=== PATIENT | male | born 1970 | race Caucasian/White ===

== ENCOUNTER 2017-05-14 19:11 | Emergency (ER) | payer OTHER ==
[2017-05-14 19:24] VITALS: BMI 25.0
[2017-05-14 19:27] VITALS: BP 141/78; PULSE 55; RESP 24; TEMP 97.5; O2SAT 98
[2017-05-14] MEDS ORDERED: Ampicillin/Sulbactam 3 GM in Sodium Chloride 0.9% 100 ML IVPB STA (19:32)
[2017-05-14] MEDS ORDERED: Sodium Chloride 0.9% 500 ML IV STA (19:33)
[2017-05-14 20:40] LABS: BASO % 1.1 % (0.0-2.0); EOS # 0.2 K/uL (0.0-0.7); HEMATOCRIT 39.7 % (35.0-51.0); LYMPH # 1.8 K/uL (1.0-4.3); LYMPH % 41.5 % (20.0-40.0); MEAN CELL VOLUME 86.2 fl (80.0-94.0); MEAN CORPUSCULAR HEMOGLOBIN 27.8 pg (27.0-31.0); MEAN CORPUSCULAR HGB CONC 32.3 g/dL (33.0-37.0); MEAN PLATELET VOLUME 10.2 fl (7.2-11.7); MONO # 0.4 K/uL (0.0-0.8); MONO % 9.7 % (0.0-10.0); NEUT # 1.9 K/uL (1.8-7.0); NEUT % 43.7 % (50.0-75.0); RED CELL DISTRIBUTION WIDTH 14.4 % (11.5-14.5); WHITE BLOOD COUNT 4.3 K/uL (4.8-10.8)
[2017-05-14] MEDS ORDERED: Lidocaine 2% Inj (20ml) ONE (20:42)
[2017-05-14] MEDS ORDERED: Povidone Iodine Topical 10% Sol ONE (20:48)
[2017-05-14 20:49] LABS: ALB/GLOB RATIO 1.3 (1.0-2.1); ALKALINE PHOSPHATASE 80 U/L (38-126); ALT/SGPT 46 U/L (21-72); AST/SGOT 37 U/L (17-59); BILIRUBIN,TOTAL 0.7 mg/dl (0.2-1.3); BLOOD UREA NITROGEN 15 mg/dl (9-20); CALCIUM 9.3 mg/dL (8.4-10.2); CARBON DIOXIDE 20 mmol/L (22-30); CHLORIDE 104 mmol/L (98-107); GFR AFRICAN-AMERICAN > 60; GLUCOSE,RANDOM 89 mg/dL (75-110); POTASSIUM 3.7 MMOL/L (3.6-5.0); SODIUM 138 mmol/l (132-148); TOTAL PROTEIN 7.8 G/DL (6.3-8.2)
--- NOTE | 2017-05-14 21:04 | ED PDOC ---
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 Patient states he did not see any amputated piece in the area and admits that he did not actively search for one. 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 Patient reports sharp pain at wound site and denies any other injured. Patient denies any numbness, tingling, weakness, fever or chills. Patient offers no additional medical complaints. Past Medical History Reviewed: Historical Data, Nursing Documentation, Vital Signs Vital Signs: Last Vital Signs Temp 97.5 F L 05/14/17 19:24 Pulse 55 L 05/14/17 19:24 Resp 24 05/14/17 19:24 BP 141/78 05/14/17 19:24 Pulse Ox 98 05/14/17 19:24 - Medical History PMH: No Chronic Diseases - Surgical History Surgical History: No Surg Hx - Family History Family History: States: Unknown Family Hx - Social History Current smoker - smoking cessation education provided: No Alcohol: None Drugs: Denies - Home Medications Home Medications: Ambulatory Orders Medication Instructions Recorded Amoxicillin/Clavulanate [Augmentin 1 tab PO BID #14 tab 05/14/17 875 MG-125 MG] Ibuprofen [Motrin Tab] 600 mg PO Q8 PRN #60 tab 05/14/17 traMADol [Ultram] 50 mg PO TID PRN #15 tab 05/14/17 traMADol [Ultram] 50 mg PO Q6 PRN 05/16/17 - Allergies Allergies/Adverse Reactions: Allergies Allergy/AdvReac Type Severity Reaction Status Date / Time No Known Allergies Allergy Verified 05/14/17 19:23 Review of Systems ROS Statement: Except As Marked, All Systems Reviewed And Found Negative (as per HPI) Constitutional: Negative for: Fever, Chills, Weakness Musculoskeletal: Positive for: Hand Pain (right hand) Skin: Positive for: Lesions (right 5th digit) Neurological: Negative for: Weakness, Numbness Physical Exam - Reviewed Nursing Documentation Reviewed: Yes Vital Signs Reviewed: Yes - Physical Exam Appears: Positive for: Non-toxic, Uncomfortable (moderate painful distress) Head Exam: Positive for: ATRAUMATIC, NORMAL INSPECTION, NORMOCEPHALIC Skin: Positive for: Normal Color, Warm, Diaphoresis Eye Exam: Positive for: Normal appearance Neck: Positive for: Normal, Supple Cardiovascular/Chest: Positive for: Regular Rate, Rhythm Respiratory: Positive for: Normal Breath Sounds. Negative for: Respiratory Distress Neurologic/Psych: Positive for: Alert, Oriented. Negative for: Motor/Sensory Deficits Comments: RIGHT 5th digit: Amputation of volar side of distal phalanx with exposed deep subcutaneous tissue and tip of fractured bone, slow oozing from open tissue, no pulsatile bleeding. Flex/extension at DIP/PIP/MCP joints 5/5. Light touch intact. - Laboratory Results Result Diagrams: 05/14/17 20:25 05/14/17 20:25 - ECG O2 Sat by Pulse Oximetry: 98 (RA) Pulse Ox Interpretation: Normal Medical Decision Making Medical Decision Making: Time: 1921 Impression: Right 5th digit fingertip amputation Plan: -- XR Right hand -- IV Fluids -- Unasyn -- Morphine 4mg IV Reassess Time: 2029 XR as read by provider indicates amputation of distal tip of distal phalanx of right 5th digit. Case discussed with Dr. Fiore, hand surgeon clinical documentation manager who suggests patient to be placed in Xeroform and bulky dressing. Patient instructed to follow up with Dr. Fiore tomorrow. Patient given contact information for Teresa, general office dispatcher to Dr. Fiore who will give patient further instructions when he calls tomorrow morning at 9 AM. Digital block performed on RIGHT 5th digit with 2% plain lidocaine for purposes of thorough examination, cleansing, and dressing wound. Cleaned with sterile saline and betadine soak. Xeroform and sterile bulky dressing applied by provider. Patient given a sling as well. Scribe Attestation: Documented by Mariama Freeman acting as a scribe for Bety Cintron MD. Provider Attestation: All medical record entries made by the Scribe were at my direction and personally dictated by me. I have reviewed the chart and agree that the record accurately reflects my personal performance of the history, physical exam, medical decision making, and the department course for this patient. I have also personally directed, reviewed, and agree with the discharge instructions and disposition. Disposition - Clinical Impression Clinical Impression: Finger amputation, traumatic Counseled Patient/Family Regarding: Studies Performed, Diagnosis, Need For Followup, Rx Given - Disposition Referrals: [facility] [Outside] Evy Pearson MD [Staff Provider] - 05/15/17 (CALL OFFICE TOMORROW AT 9AM TO SPEAK TO MILLIE. SHE WILL GIVE YOU FURTHER INSTRUCTIONS. YOU WILL BE SEEN BY DR PEARSON IN THE AFTERNOON.) Disposition: Routine/Home Disposition Time: 21:30 Condition: STABLE Additional Instructions: DO NOT REMOVE DRESSING TAKE MEDICATIONS PRESCRIBED Prescriptions: Amoxicillin/Clavulanate [Augmentin 875 MG-125 MG] 1 tab PO BID #14 tab Ibuprofen [Motrin Tab] 600 mg PO Q8 PRN #60 tab PRN Reason: Pain, Moderate (4-7) traMADol [Ultram] 50 mg PO TID PRN #15 tab PRN Reason: SEVERE PAIN ONLY Instructions: Finger Amputation (ED) Forms: [facility] ED School/Work Excuse
[2017-05-14 21:09] LABS: PARTIAL THROMBOPLASTIN TIME 31.1 Seconds (25.6-37.1)
--- NOTE | 2017-05-15 11:35 | RAD ---
PROCEDURE: Right small finger radiographs. HISTORY: finger amputation COMPARISON: None. TECHNIQUE: AP radiograph of the right hand, as well as spot oblique and lateral images of small finger were obtained. FINDINGS: RIGHT SMALL FINGER: Tissue loss at the level of the distal phalanx of the right small finger is identified with the tuft partially absent as well compatible with known amputation. No definite retained radiodense foreign bodies appreciated proximal and middle phalanges of the right small finger appear intact as well as their local soft tissues. Remainder of the right hand (as seen on the AP view) grossly unremarkable. JOINTS: Normal. SOFT TISSUES: Partial amputation right small finger as described above. OTHER FINDINGS: None. IMPRESSION: Partial amputation at the distal portion of the right small finger involves the tuft of the distal phalanx and local soft tissues there is well as more proximally. No retained radiodense foreign body or dislocation identified.
== END 2017-05-14 22:34 | disposition home or self-care (01) ==
LOC: H.ER 19:11
DX: S68.626A Partial traumatic transphalangeal amputation of right little finger, initial encounter (principal); W23.0XXA Caught, crushed, jammed, or pinched between moving objects, initial encounter; Y99.0 Civilian activity done for income or pay
CPT/HCPCS: 73140; 80053; 85025; 85610; 85730; 86850; 86900; 96361; 96374; 96375; 99283; J0295; J2270; J7040

== ENCOUNTER 2017-05-16 05:58 | Day surgery (SDC) | payer SELFPAY ==
[2017-05-16] MEDS ORDERED: Lactated Ringer's 1,000 ML IV ONE ×2 (06:40→08:45)
[2017-05-16] MEDS ORDERED: Lidocaine 1% Inj (20ml) ONE (07:15)
[2017-05-16] MEDS ORDERED: Bupivacaine 0.5% Inj(30mL) ONE (07:15)
[2017-05-16] MEDS ORDERED: Midazolam 2 MG/2 ML VIAL ONE (07:38)
[2017-05-16] MEDS ORDERED: Propofol 10 mg/ml Inj (20 ML) ONE ×2 (07:38→08:26)
[2017-05-16] MEDS ORDERED: Lidocaine Hydrochloride 5 ML INJ ONE (07:38)
[2017-05-16] MEDS ORDERED: EPINEPHrine 1 mg/ml (1:1000) Inj ONE (07:39)
[2017-05-16] MEDS ORDERED: Bacitracin Ointment 30 GM TUBE ONE (07:39)
[2017-05-16] MEDS ORDERED: Bupivacaine HCl 0.25% PF (30 ml) Inj ONE (07:39)
[2017-05-16] MEDS ORDERED: Bupivacaine 0.5% 50 ML IJ ONE (08:15)
[2017-05-16] MEDS ORDERED: Lidocaine 1% Inj (20ml) IJ ONE (08:15)
[2017-05-16] MEDS ORDERED: Bacitracin OINT 15GM TOP ONE (08:37)
--- NOTE | 2017-05-16 08:52 | PCM.SURG1 ---
Surgeon's Initial Post Op Note - Surgeon's Notes Surgeon: Latrice Production Control Expediter: Giovanny PGY3, Saeed PGY1 Type of Anesthesia: Block Regional, IV Sedation Pre-Operative Diagnosis: R small finger volar avulsion Operative Findings: same Post-Operative Diagnosis: same Operation Performed: hypothenar flap Specimen/Specimens Removed: none Estimated Blood Loss: EBL {In ML}: 15 Blood Products Given: N/A Drains Used: No Drains Post-Op Condition: Good Date of Surgery/Procedure: 05/16/17 Time of Surgery/Procedure: 08:51
[2017-05-16] MEDS ORDERED: Amoxicillin-Clav 875-125 mg Tab PO SCH (09:00)
[2017-05-16] MEDS ORDERED: Lactated Ringer's 1,000 ML IV SCH (09:11)
[2017-05-16 10:06] VITALS: RESP 18
[2017-05-16 10:55] VITALS: BP 105/0; PULSE 47; TEMP 97.8; O2SAT 98
--- NOTE | 2017-05-20 22:52 | OP ---
PROCEDURE DATE: 05/20/2017. SURGEON: Dr. Evy Pollard MD. DIRECT SERVICE PROFESSIONAL: Aba , DO. PREOPERATIVE DIAGNOSIS: Right small finger volar tip avulsion. POSTOPERATIVE DIAGNOSIS: Right small finger volar tip avulsion. ANESTHESIA: Sedation. PROCEDURE: 1. Wrist block. 2. Creation of hypothenar flap, debridement of finger tip and transposition of thenar flap. Lab sponge and needle count were correct at the end of the case. CONDITION: The patient was thereupon discharged to recovery. INDICATIONS FOR SURGERY: The patient is a 46-year-old male who sustained a avulsion of the soft tissue on his right small finger white at work. His phalanx is intact and the extensor tendon is intact, however he has no volar soft tissue. In the office we discussed completion amputation versus resurfacing of the volar skin and he has opted for the thenar flap knowing that he may have some PIP contractures postop. SURGERY FOLLOWS: The patient was attended by the holding area. Right arm was marked. He was then brought to the operating room and laid in supine on the operating room table. One sedation was provided till the right wrist was blocked using 1% Lidocaine, 0.5% Marcaine in a 50:50 mixture to block the median nerve, ulnar nerve, radial sensory and ulnar sensory nerves. The hand was then prepped and draped in the usual sterile fashion. Using a 15 scalpel, a distally based hypothenar flap was created over the hypothenar eminence in line with the small finger when flexed. The flap was 2 cm x 1 cm in width. The proximal end was left detached. The finger itself was debrided along its undersurface of any granulation tissue. The proximal aspect of the flap was then flipped a 180 degrees and sutured to the proximal end of the finger. Two 4-0 nylons were used to suture the finger down in 90 degrees flexion at the PIP joint and 180 at the DIP. The wound was then irrigated, any bleeding was controlled with the electrocautery. The palmar defect was defect was covered with Bacitracin and Duform as was the area around the flap itself on the finger. The entire hand was then dressed with 4 x 4 gauze and Coban. The patient tolerated the procedure well. He was transferred to the stretcher and brought to the recovery in stable condition. Evy Pollard MD [facility] # [id number]
== END 2017-05-16 11:25 | disposition home or self-care (01) ==
LOC: H.OPSURG 05:58
PROVIDERS: ATTEND Plastic Surgery Surgery of the Hand
DX: S61.206A Unspecified open wound of right little finger without damage to nail, initial encounter (principal); X58.XXXA Exposure to other specified factors, initial encounter
CPT/HCPCS: 14040; 64450; J0690; J2250; J2405; J2704; J3010; J7030; J7120

== ENCOUNTER 2017-05-31 06:19 | Day surgery (SDC) | payer SELFPAY ==
[2017-05-31] MEDS ORDERED: Midazolam 2 MG/2 ML VIAL ONE (07:22)
[2017-05-31] MEDS ORDERED: Propofol 10 mg/ml Inj (20 ML) ONE ×4 (07:22→08:16)
[2017-05-31] MEDS ORDERED: Lidocaine 1% Inj (20ml) ONE (07:37)
[2017-05-31] MEDS ORDERED: Bupivacaine 0.5% Inj(30mL) ONE (07:37)
[2017-05-31] MEDS ORDERED: Lactated Ringer's 1,000 ML IV ONE (07:40)
[2017-05-31] MEDS ORDERED: Lidocaine 1% Inj (20ml) IJ ONE (08:05)
[2017-05-31] MEDS ORDERED: Bupivacaine 0.5% 50 ML IJ ONE (08:05)
[2017-05-31] MEDS ORDERED: Bacitracin Ointment 30 GM TUBE ONE (08:16)
[2017-05-31] MEDS ORDERED: Bacitracin OINT 15GM TOP ONE (08:40)
[2017-05-31] MEDS ORDERED: HYDROmorphone 0.5 mg/0.5 ml ISec IVP PRN (08:46)
[2017-05-31] MEDS ORDERED: Lactated Ringer's 1,000 ML IV SCH (08:46)
[2017-05-31 09:06] VITALS: RESP 18; O2SAT 100
[2017-05-31] MEDS ORDERED: Oxycodone/Acetaminophen 5/325 mg Tab PO PRN (09:21)
--- NOTE | 2017-05-31 09:26 | PCM.SURG1 ---
Surgeon's Initial Post Op Note - Surgeon's Notes Surgeon: Dr. Del Pollard Glucose And Syrup Weigher: Sana Davey PA-C Type of Anesthesia: IV Sedation Anesthesia Administered By: Dr. Zenaida Neff Pre-Operative Diagnosis: Right Fifth Phalanx Distal Volar Avulsion Injury Operative Findings: see operative note Post-Operative Diagnosis: same Operation Performed: Right Fifth Phalanx Division and Inset of Hypothenar Flap Specimen/Specimens Removed: none Estimated Blood Loss: EBL {In ML}: 5 Drains Used: No Drains Post-Op Condition: Good Date of Surgery/Procedure: 05/31/17 Time of Surgery/Procedure: 07:45
[2017-05-31 11:15] VITALS: BP 118/73; PULSE 48; TEMP 97.5
--- NOTE | 2017-06-04 01:33 | OP ---
PROCEDURE DATE: 05/31/2017 SURGEON: Evy Pollard MD BUSINESS ANALYST PROJECT MANAGER: Sana Davey PA-C PREOPERATIVE DIAGNOSIS: Right small finger distal volar tip avulsion. POSTOPERATIVE DIAGNOSIS: Right small finger distal volar tip avulsion. ANESTHESIA: Sedation. PROCEDURE: Division and insert of hypothenar flap with insert of the flap into the small finger distal tip and primary closure of the palmar defect and right wrist block. COUNT: Lab sponge and needle count were correct at the end of the case. CONDITION: The patient was thereupon discharged to recovery. INDICATIONS FOR SURGERY: The patient is a 46-year-old male who suffered a avulsion injury of the right small finger distal phalanx volar soft tissue with intact tendon and nail and nail bed. He underwent a first-stage procedure 2 weeks ago and is here for the division and inserting of the hypothenar flap. DESCRIPTION OF PROCEDURE: The patient was identified in the holding area, brought to the operating room and laid in supine on the operating room table. Once sedation was provided, wrist block was performed by the operating surgeon with 10 mL of 1% Lidocaine, 0.5% Marcaine in a 50:50 mixture in order to block the median nerve, ulnar nerve, ulnar sensory and radial sensory nerves. The arm was then prepped and draped in the usual sterile fashion. Using a scalpel, the proximal aspect of the flap in the hand was divided, a portion of the distal flap needed to be trimmed in order to inset and flap against the distal phalanx and nail bed. 4-0 chromic was used to inset the thenar flap on to the finger, in the hand itself, Burow's triangles removed at either end of the resulting defect from the hypothenar flap. This resulted in an extra centimeter on either side of the 1.5 cm long flap. The ultimate defect was 3.5 cm x 1.0 cm in width which was mobilized and closed primarily using 4-0 chromic. The wounds were irrigated, granulation tissue was removed prior to closing the inset in the flap. The finger was manipulated at the PIP joint and DIP joints for stiffness and at the conclusion of the case, dressing was applied using Adaptic, Bacitracin, 4 x 4 gauze, Arthur and then reinforced with Coban. The patient tolerated the procedure well, was transferred to the stretcher and brought to the recovery in stable condition. Evy Pollard MD
== END 2017-05-31 11:40 | disposition home or self-care (01) ==
LOC: H.OPSURG 06:19
PROVIDERS: ATTEND Plastic Surgery Surgery of the Hand
DX: S61.206A Unspecified open wound of right little finger without damage to nail, initial encounter (principal); X58.XXXA Exposure to other specified factors, initial encounter
CPT/HCPCS: 12001; J0690; J1170; J2250; J2704; J3010; J7030; J7120

== ENCOUNTER 2018-07-14 12:43 | Emergency (ER) | payer SELFPAY ==
[2018-07-14 12:43] VITALS: BMI 25.0
[2018-07-14 13:03] VITALS: RESP 18; O2SAT 100
--- NOTE | 2018-07-14 14:04 | ED PDOC ---
Lower Extremity Pain/Injury Time Seen by Provider: 07/14/18 13:09 Chief Complaint (Nursing): Lower Extremity Problem/Injury Chief Complaint (Provider): Lower Extremity Problem/Injury History Per: Patient History/Exam Limitations: no limitations Onset/Duration Of Symptoms: Hrs Current Symptoms Are (Timing): Still Present Additional Complaint(s): 48 y/o male presents to the ED for evaluation of left lower extremity pain. Patient states that last night he accidentally dropped a cutting board on his left foot. Patient reports of icing and elevating his foot with no improvement. Patient denies taking any medications for pain. PMD: none - Ankle/Foot Description Of Injury: Struck With Object Past Medical History Reviewed: Historical Data, Nursing Documentation, Vital Signs Vital Signs: Last Vital Signs Temp 97.6 F 07/14/18 13:01 Pulse 65 07/14/18 13:01 Resp 18 07/14/18 13:01 BP 122/72 07/14/18 13:01 Pulse Ox 100 07/14/18 13:01 - Medical History PMH: No Chronic Diseases Denies: Chronic Kidney Disease - Surgical History Surgical History: No Surg Hx - Family History Family History: States: Unknown Family Hx - Home Medications Home Medications: Ambulatory Orders Medication Instructions Recorded Amoxicillin/Clavulanate [Augmentin 1 tab PO BID #14 tab 05/14/17 875 MG-125 MG] Ibuprofen [Motrin Tab] 600 mg PO Q8 PRN #60 tab 05/14/17 traMADol [Ultram] 50 mg PO Q4 05/31/17 - Allergies Allergies/Adverse Reactions: Allergies Allergy/AdvReac Type Severity Reaction Status Date / Time No Known Allergies Allergy Verified 07/14/18 13:01 Review of Systems ROS Statement: Except As Marked, All Systems Reviewed And Found Negative Musculoskeletal: Positive for: Foot Pain (left) Physical Exam - Reviewed Nursing Documentation Reviewed: Yes Vital Signs Reviewed: Yes - Physical Exam Appears: Positive for: No Acute Distress Skin: Positive for: Normal Color, Warm, Dry Eye Exam: Positive for: Normal appearance Neck: Positive for: Normal Cardiovascular/Chest: Negative for: Bradycardia, Tachycardia Respiratory: Negative for: Accessory Muscle Use, Respiratory Distress Extremity: Positive for: Tenderness (Erythema and tenderness to the dorsal mid- foot). Negative for: Deformity (gross bony deformity) - Laboratory Results Result Diagrams: 10/28/18 16:50 - ECG O2 Sat by Pulse Oximetry: 100 (RA) Pulse Ox Interpretation: Normal Medical Decision Making Medical Decision Making: Time: 1359 Plan: -- Motrin 600 mg PO -- Foot Left 3 Views XR Time: 1 FOOT XR RESULTS FINDINGS: BONES: No acute fracture. Hallux valgus deformity. Anterior talar osteophyte. JOINTS: 1st metatarsophalangeal arthritic changes. SOFT TISSUES: Normal. OTHER FINDINGS: None. IMPRESSION: No demonstrated fracture or dislocation. Hallux valgus deformity. Time: 1644 -- Podiatry consult completed. Podiatry requesting CBC and state if white count is normal, patient can be sent home. If white count is abnormal, patient can be sent home with antibiotics. Patient advised to follow up with transmission engineer, Dr. Santana in his office in 2-3 days. -- Schmidt compression applied. Scribe Attestation: Documented by Kishan Gil, acting as a scribe for Ada Henao PA-C. Provider Scribe Attestation: All medical record entries made by the Scribe were at my direction and personally dictated by me. I have reviewed the chart and agree that the record accurately reflects my personal performance of the history, physical exam, [facility] decision making, and the department course for this patient. I have also personally directed, reviewed, and agree with the discharge instructions and disposition. Disposition - Clinical Impression Clinical Impression: Foot contusion - Patient ED Disposition Is Patient to be Admitted: No Counseled Patient/Family Regarding: Diagnosis, Need For Followup, Rx Given - Disposition Disposition: Routine/Home Disposition Time: 17:39 Condition: STABLE Instructions: Contusion (DC) Forms: [employer] (Serbian)
--- NOTE | 2018-07-14 15:35 | RAD ---
Date of service: 07/14/2018 PROCEDURE: Left Foot Radiographs. HISTORY: pain, dropped cutting board on foot yesterday COMPARISON: None. FINDINGS: BONES: No acute fracture. Hallux valgus deformity. Anterior talar osteophyte. JOINTS: 1st metatarsophalangeal arthritic changes. SOFT TISSUES: Normal. OTHER FINDINGS: None. IMPRESSION: No demonstrated fracture or dislocation. Hallux valgus deformity.
[2018-07-14 17:08] LABS: HEMOGLOBIN 15.1 g/dL (12.0-18.0); MEAN CELL VOLUME 86.6 fl (80.0-94.0); MEAN CORPUSCULAR HEMOGLOBIN 28.8 pg (27.0-31.0); MEAN CORPUSCULAR HGB CONC 33.2 g/dL (33.0-37.0); RBC 5.24 Mil/uL (4.40-5.90); RED CELL DISTRIBUTION WIDTH 13.9 % (11.5-14.5)
--- NOTE | 2018-07-14 17:22 | CP.PCM.CON ---
History of Present Illness - History of Present Illness History of Present Illness: Podiatry consult note for Dr Santana, 48 yo male with no medical history seen in the ED for pain in the left foot. Patient states he had dropped a cutting board on the foot yesterday. Pain has been getting worse and states hes also noticed some redness and swelling. Patient rates his pain 6/10. Patient states hes tried icing and elevating, however symptoms have not gotten better. Surgical history: denies allergies; denies social history: denies smoking drinking alcohol or use of any recreational drugs Past Patient History - Past Medical History & Family History Past Medical History?: No - Past Social History Smoking Status: Never Smoked - CARDIAC Hx Cardiac Disorders: No - PULMONARY Hx Respiratory Disorders: No - NEUROLOGICAL Hx Neurological Disorder: No - HEENT Hx HEENT Problems: No - RENAL Hx Chronic Kidney Disease: No - ENDOCRINE/METABOLIC Hx Endocrine Disorders: No - HEMATOLOGICAL/ONCOLOGICAL Hx Blood Disorders: No - INTEGUMENTARY Hx Dermatological Problems: No - MUSCULOSKELETAL/RHEUMATOLOGICAL Hx Musculoskeletal Disorders: No - GASTROINTESTINAL Hx Gastrointestinal Disorders: No - GENITOURINARY/GYNECOLOGICAL Hx Genitourinary Disorders: No - PSYCHIATRIC Hx Psychophysiologic Disorder: No Hx Substance Use: No - SURGICAL HISTORY Hx Surgeries: Yes Other/Comment: HYPOTHENER FLAP RIGHT HAND 05/16/17 - ANESTHESIA Hx Anesthesia: Yes Hx Anesthesia Reactions: No Hx Malignant Hyperthermia: No Meds Home Medications: Home Medication List Medication Instructions Recorded Confirmed Type Naproxen [Naprosyn] 500 mg PO BID PRN #20 tablet 07/14/18 Rx Allergies/Adverse Reactions: Allergies Allergy/AdvReac Type Severity Reaction Status Date / Time No Known Allergies Allergy Verified 07/14/18 13:01 Physical Exam - Constitutional Appears: Well, Non-toxic, No Acute Distress - Head Exam Head Exam: ATRAUMATIC, NORMOCEPHALIC - Extremities Exam Extremities exam: Positive for: pedal edema Additional comments: Left foot focused exam Vascular: DP/PT pulses papable 2/4, CFT <3 secs x5, +2 pitting edema noted to the dorsum of the foot, erythema noted to the dorsal aspect of the foot Neuro: protective sensation intact via ipswich 12/19 derm: no open lesions, erythema noted at the dorsal aspect of the foot, upon elevation erythema remains to the foot, no IDM, edema noted to the foot ortho: no pain on ROM of the foot joints, pain on palpation tot he base of 3/4/5th metatarsals. Results - Vital Signs Recent Vital Signs: Last Vital Signs Temp 97.6 F 07/14/18 13:01 Pulse 65 07/14/18 13:01 Resp 18 07/14/18 13:01 BP 122/72 07/14/18 13:01 Pulse Ox 100 07/14/18 16:47 - Labs Result Diagrams: 07/14/18 16:50 Assessment & Plan - Assessment and Plan (Free Text) Assessment: 48 yo male seen and evaluated in the ED for left foot closed third and fourth metatarsal base fracture; no dislocation or displacement noted. Plan: Patient seen and evaluated Chart, labs and vitals reviewed; afebrile and absent leukocytosis CBC ordered; WBC 6.0 X-rays of the left foot ordered; chip fracture of the third and fourth metatarsal base noted Foot dressed with mild estrada compression surgical shoe dispensed; patient to WB as tolerated Antiinflammatory to be rx by the ED doctor Patient to rest, ice and elevate left lower extremity Patient will follow up with Dr. Santana in podiatry clinic at [place] in 2 weeks Thank you for the consult
[2018-07-14 17:58] VITALS: BP 115/64; PULSE 60; TEMP 97.9
== END 2018-07-14 18:01 | disposition home or self-care (01) ==
LOC: H.ER 12:43
DX: S90.32XA Contusion of left foot, initial encounter (principal); W22.8XXA Striking against or struck by other objects, initial encounter; Y92.89 Other specified places as the place of occurrence of the external cause

== ENCOUNTER 2018-08-15 09:39 | Emergency (ER) | payer SELFPAY ==
[2018-08-15 10:02] VITALS: BP 119/71; PULSE 62; RESP 16; TEMP 98.5; O2SAT 99
--- NOTE | 2018-08-15 10:58 | ED PDOC ---
Lower Extremity Pain/Injury Additional Complaint(s): Pt seen and examined at bedside with attending. 48M no PMH p/w RIGHT knee injury 2 weeks ago while walking down stairs. Pt describes misstepping that led to a twisting motion but denies any immediate swelling or popping sound at the time of injury. Over the past 2 weeks the pain and swelling developed and now patient describes medial pain and denies any fevers, chills, redness at the knee. PMD: [facility] <Brea Taylor - Last Filed: 08/15/18 12:23> <Marlon Little III - Last Filed: 08/15/18 12:27> Time Seen by Provider: 08/15/18 10:35 Chief Complaint (Nursing): Lower Extremity Problem/Injury Supervising Attending Note - Attestation: I have personally seen and examined this patient.: Yes I have fully participated in the care of the patient.: Yes I have reviewed all pertinent clinical information, including history, physical exam and plan: Yes - Notes: Notes:: pt seen and examined agree w findings, ongoing knee pain possible internal derangement, pulses intact and needs outpt MRI <Marlon Little III - Last Filed: 08/15/18 12:27> Past Medical History Vital Signs: Last Vital Signs Temp 36.9 C 08/15/18 10:02 Pulse 62 08/15/18 10:02 Resp 16 08/15/18 10:02 BP 119/71 08/15/18 10:02 Pulse Ox 99 08/15/18 10:02 - Medical History PMH: No Chronic Diseases Denies: Chronic Kidney Disease - Family History Family History: States: Unknown Family Hx <Brea Taylor - Last Filed: 08/15/18 12:23> Vital Signs: Last Vital Signs Temp 98.5 F 08/15/18 10:02 Pulse 62 08/15/18 10:02 Resp 16 08/15/18 10:02 BP 119/71 08/15/18 10:02 Pulse Ox 99 08/15/18 12:23 <Marlon Little III - Last Filed: 08/15/18 12:27> - Home Medications Home Medications: Ambulatory Orders Medication Instructions Recorded Amoxicillin/Clavulanate [Augmentin 1 tab PO BID #14 tab 05/14/17 875 MG-125 MG] Ibuprofen [Motrin Tab] 600 mg PO Q8 PRN #60 tab 05/14/17 traMADol [Ultram] 50 mg PO Q4 05/31/17 Naproxen [Naprosyn] 500 mg PO BID PRN #20 tablet 07/14/18 Naproxen [Naprosyn] 500 mg PO BID PRN #14 tablet 08/15/18 - Allergies Allergies/Adverse Reactions: Allergies Allergy/AdvReac Type Severity Reaction Status Date / Time No Known Allergies Allergy Verified 07/14/18 13:01 Review of Systems ROS Statement: Except As Marked, All Systems Reviewed And Found Negative Musculoskeletal: Positive for: Leg Pain (RIGHT knee) <Brea Taylor - Last Filed: 08/15/18 12:23> Physical Exam - Reviewed Vital Signs Reviewed: Yes - Physical Exam Appears: Positive for: Well, Non-toxic Head Exam: Positive for: ATRAUMATIC Skin: Positive for: Normal Color, Warm, Dry Eye Exam: Positive for: Normal appearance ENT: Positive for: Normal ENT Inspection Neck: Positive for: Supple Cardiovascular/Chest: Positive for: Regular Rate, Rhythm. Negative for: Murmur Respiratory: Positive for: Normal Breath Sounds. Negative for: Crackles, Wheezing Gastrointestinal/Abdominal: Positive for: Normal Exam, Bowel Sounds, Soft. Negative for: Tenderness Extremity: Positive for: Tenderness (RIGHT medial knee pain, Svetlana's positive, Gillian's equivocal and drawer negative), Swelling (RIGHT knee), Other (neurovascular intact) Neurologic/Psych: Positive for: Alert, Oriented <Brea Taylor - Last Filed: 08/15/18 12:23> - ECG O2 Sat by Pulse Oximetry: 99 <Brea Taylor - Last Filed: 08/15/18 12:23> Medical Decision Making Medical Decision Making: Suspect meniscal tear. - Toradol - RIGHT knee X-ray - immobilizer - Reeval Knee Xray negative for fracture or dislocation <Brea Taylor - Last Filed: 08/15/18 12:23> Disposition - Patient ED Disposition Is Patient to be Admitted: No Counseled Patient/Family Regarding: Diagnosis, Need For Followup, Rx Given - Disposition Disposition: Routine/Home Disposition Time: 12:19 <Brea Taylor - Last Filed: 08/15/18 12:23> <Marlon Little III - Last Filed: 08/15/18 12:27> - Clinical Impression Clinical Impression: Knee injury - Disposition Referrals: [facility] [place] [Outside] Condition: STABLE Additional Instructions: See clinic for further testing. Wear immobilizer to knee and avoid strenuous use. Prescriptions: Naproxen [Naprosyn] 500 mg PO BID PRN #14 tablet PRN Reason: Pain, Moderate (4-7) Instructions: Internal Derangement of the Knee Forms: [employer] ([place])
--- NOTE | 2018-08-15 11:49 | RAD ---
Date of service: 08/15/2018 PROCEDURE: Right Knee Radiographs. HISTORY: RIGHT knee swelling/pain COMPARISON: None. FINDINGS: BONES: Normal. No fracture. JOINTS: Normal. No osteoarthritis. JOINT EFFUSION: None. OTHER FINDINGS: None. IMPRESSION: Normal radiographs of the right knee.
== END 2018-08-15 12:30 | disposition home or self-care (01) ==
LOC: H.ER 09:39
DX: S89.91XA Unspecified injury of right lower leg, initial encounter (principal); X50.9XXA Other and unspecified overexertion or strenuous movements or postures, initial encounter; Y92.89 Other specified places as the place of occurrence of the external cause
CPT/HCPCS: 29530; 73562; 96372; 99284; J1885